=== PATIENT | female | born 1940 | race Caucasian/White ===

== ENCOUNTER 2016-04-06 16:49 | Emergency (ER) | payer MEDICARE ==
[2016-04-06] MEDS ORDERED: Sodium Chloride 0.9% 1,000 ML ONE (17:03)
[2016-04-06] MEDS ORDERED: Ondansetron HCl/PF 4 MG/2 ML Vial ONE (17:11)
[2016-04-06 17:35] LABS: ALT (SGPT) 22 U/L (0-55); AST (SGOT) 25 U/L (5-34); Alkaline Phosphatase 68 U/L (40-150); Anion Gap 16 mmol/L (10-20); BUN (Urea Nitrogen) 22 mg/dL (9.8-20.1); Bilirubin, Total 0.7 mg/dL (0.2-1.2); Calc. Creatinine Clearance 0 mL/min (70-130); Calcium 9.6 mg/dL (7.8-10.44); Carbon Dioxide 24 mmol/L (23-31); Chloride 106 mmol/L (98-107); Estimated GFR-MDRD 63; Globulin 3.2 g/dL (2.4-3.5); Protein, Total 7.6 g/dL (5.8-8.1)
[2016-04-06 17:39] LABS: #Lymphocytes 0.3 thou/uL (1.20-3.40); #Monocytes 0.3 thou/uL (0.11-0.59); #Neutrophils 6.9 thou/uL (1.40-6.50); %Basophils 0.4 % (0.0-1.0); %Eosinophils 0.1 % (0.0-10.0); %Lymphocytes 3.7 % (21.0-51.0); %Monocytes 4.5 % (0.0-10.0); Hematocrit 42.6 % (36.0-47.0); Mean Platelet Volume 6.4 fL (7.4-10.4); Red Blood Cell (RBC) Count 4.68 mill/uL (4.20-5.40); White Blood Cell (WBC) Count 7.6 thou/uL (4.8-10.8)
[2016-04-06] MEDS ORDERED: Sodium Chloride 0.9% 500 ML ONE (18:34)
[2016-04-06 19:12] LABS: Bilirubin Negative (Negative); Blood, Urine Negative (Negative); Glucose, Urine (Dipstick) Negative (Negative); Ketone, Urine Trace mg/dL (Negative); Nitrite Negative (Negative); Protein, Urine (Dipstick) Negative (Neg-Trace); Urobilinogen 0.2 mg/dL (0.2-1.0)
== END 2016-04-06 19:46 | disposition home or self-care (01) ==
LOC: NAV ERS 16:49
DX: K52.9 Noninfective gastroenteritis and colitis, unspecified (principal); I10 Essential (primary) hypertension; Z79.82 Long term (current) use of aspirin; Z79.899 Other long term (current) drug therapy
CPT/HCPCS: 80053; 81003; 83605; 85025; 93005; 96361; 96374; A4353; J2405; J7050

== ENCOUNTER 2016-07-19 11:48 | Outpatient (CLI) | payer MEDICARE ==
--- NOTE | 2016-07-21 16:32 | RAD ---
RIGHT SHOULDER 3 VIEWS: HISTORY: Injured shoulder falling out of bed. FINDINGS: The bones are demineralized. There are severe arthritic changes of the glenohumeral joint space. D eformity to the humeral head is present. There are arthritic changes of the AC joint. There are no signs of fracture or dislocation. IMPRESSION: Marked arthritic changes of the shoulder. POS: [facility]
== END 2016-07-19 11:49 | disposition home or self-care (01) ==
LOC: NAV RAD 11:48
PROVIDERS: ATTEND Family Medicine
DX: M75.101 Unspecified rotator cuff tear or rupture of right shoulder, not specified as traumatic (principal)

== ENCOUNTER 2017-04-15 14:10 | Outpatient (CLI) | payer MEDICARE ==
[2017-04-15 14:24] LABS: #Basophils 0.1 thou/uL (0.0-0.2); #Eosinphils 0.1 thou/uL (0.0-0.7); #Lymphocytes 1.2 thou/uL (1.20-3.40); #Monocytes 0.7 thou/uL (0.11-0.59); #Neutrophils 5.1 thou/uL (1.40-6.50); %Basophils 1.1 % (0.0-1.0); %Eosinophils 1.2 % (0.0-10.0); %Lymphocytes 16.8 % (21.0-51.0); %Monocytes 9.6 % (0.0-10.0); %Neutrophils 71.3 % (42.0-75.0); Hemoglobin 13.1 g/dL (12.0-16.0); Mean Corpuscular HGB CONC 33.5 g/dL (32.0-36.0); Mean Corpuscular Hemoglobin 29.8 pg (27.0-31.0); Mean Corpuscular Volume 89.2 fl (81.0-99.0); Mean Platelet Volume 8.6 fL (7.4-10.4); Platelet Count 262 thou/uL (130-400); Red Blood Cell (RBC) Count 4.41 mill/uL (4.20-5.40); White Blood Cell (WBC) Count 7.2 thou/uL (4.8-10.8)
[2017-04-15 14:38] LABS: ALT (SGPT) 17 U/L (8-55); AST (SGOT) 20 U/L (5-34); Albumin 4.1 g/dL (3.4-4.8); Alkaline Phosphatase 74 U/L (40-150); Anion Gap 13 mmol/L (10-20); BUN (Urea Nitrogen) 11 mg/dL (9.8-20.1); Bilirubin, Total 0.4 mg/dL (0.2-1.2); Calc. Creatinine Clearance 0 mL/min (70-130); Carbon Dioxide 28 mmol/L (23-31); Chloride 105 mmol/L (98-107); Estimated GFR-MDRD 67; Glucose 98 mg/dL (83-110); Lipase 68 U/L (8-78); Potassium 3.7 mmol/L (3.5-5.1); Protein, Total 7.1 g/dL (6.0-8.3); Sodium 142 mmol/L (136-145)
== END 2017-04-15 14:11 | disposition home or self-care (01) ==
LOC: NAV LAB 14:10
PROVIDERS: ATTEND Family Medicine
DX: R10.13 Epigastric pain (principal)
CPT/HCPCS: 36415; 80053; 83690; 85025

== ENCOUNTER 2020-05-26 09:43 | Outpatient (CLI) | payer MEDICARE | END 2020-05-26 09:44 | disposition home or self-care (01) | LOC: NAV RAD 09:43 | PROVIDERS: ATTEND Family Medicine | DX: M47.26 Other spondylosis with radiculopathy, lumbar region (principal); G62.9 Polyneuropathy, unspecified; M41.9 Scoliosis, unspecified | CPT/HCPCS: 72100 ==

== ENCOUNTER 2020-08-14 09:40 | Emergency (ER) | payer MEDICARE | END 2020-08-14 10:34 | disposition home or self-care (01) | LOC: NAV ERS 09:40 | DX: K52.9 Noninfective gastroenteritis and colitis, unspecified (principal); K21.9 Gastro-esophageal reflux disease without esophagitis; J42 Unspecified chronic bronchitis; I10 Essential (primary) hypertension; Z79.82 Long term (current) use of aspirin; Z79.899 Other long term (current) drug therapy | CPT/HCPCS: 99283 ==